=== PATIENT | male | born 1990 | race Caucasian/White ===

== ENCOUNTER 2020-02-17 17:06 | Emergency (ER) | payer OTHER ==
[~2020-02-17] VITALS: Ht 182.9 cm; Wt 77.3 kg
[2020-02-17 17:41] VITALS: BP 121/52
[2020-02-17] MEDS ORDERED: dexamethasone sod phosphate 10mg/ml inj IM STA (18:29)
[2020-02-17] MEDS ORDERED: ketorolac tromethamine 15mg/ml inj. IM ONE (18:30)
== END 2020-02-17 18:55 | disposition home or self-care (01) ==
LOC: ER 17:08
DX: M54.5 Low back pain (principal); G89.29 Other chronic pain; W01.0XXA Fall on same level from slipping, tripping and stumbling without subsequent striking against object, initial encounter; Y93.89 Activity, other specified; Y92.69 Other specified industrial and construction area as the place of occurrence of the external cause; Y99.9 Unspecified external cause status
CPT/HCPCS: 96372; 99284; J1100; J1885